=== PATIENT | female | born 1990 | race Hispanic/Latino ===

== ENCOUNTER 2024-02-29 06:55 | Day surgery (SDC) | payer BC, OTHER ==
[2024-02-26 12:46] LABS: Absolute Basophils 0.1 K/uL (0-0.5); Absolute Eosinophils 0.2 K/uL (0-0.5); Absolute Lymphocytes (CBC) 2.1 K/uL (0.7-4.9); Absolute Monocytes 0.4 K/uL (0.1-1.3); Absolute Neutrophil 4.9 K/uL (1.8-8.0); Basophils % 0.9 % (0-1.3); Hematocrit 41.8 % (36.0-45.0); Hemoglobin 14.1 g/dL (12.0-15.0); MCH 29.3 pg (27.0-35.0); MCHC 33.9 g/dL (32.0-36.0); MCV 86.5 fL (80-100); MPV 8.9 fL (7.6-11.3); Monocytes % 5.8 % (3.3-12.3); Neutrophils % 64.3 % (41.7-73.7); Nucleated Red Blood Cells % 0.1 % (0-0); Platelets 354 thou/uL (152-406); RBC Red Blood Cell Count 4.83 M/uL (3.86-4.86); Red Cell Distribution Width 13.6 % (12.1-15.2)
[2024-02-26 13:00] LABS: Specific Gravity 1.018 (1.005-1.030); Sqamous Epithelial 20-50 /HPF (None Seen); Urine Bacteria >50 /HPF (<20); Urine Bilirubin NEGATIVE (Negative); Urine Blood 3+ (Negative); Urine Clarity Extremely Turbid (Clear); Urine Color Light-Orange (Yellow); Urine Culture Reflex Order NOT NEEDED; Urine Glucose NEGATIVE (Negative); Urine Ketones NEGATIVE (Negative); Urine Microscopic Reflex YN ORDER UMIC; Urine Mucus 1+ /HPF (None Seen); Urine Nitrite NEGATIVE (Negative); Urine Protein TRACE (Negative); Urine RBC >50 /HPF (None Seen); Urine Urobilinogen Normal (Normal); Urine WBC >50 /HPF (<5)
--- NOTE | 2024-02-26 16:03 | EKG ---
Test Date: 2024-02-26 Test Time: 12:05:47 Director Of Strategic Communications: JORDAN MEASUREMENT RESULTS: Intervals: Rate: 73 OK: 158 QRSD: 82 QT: 394 QTc: 434 [place]: P: 52 OK: 158 QRS: 1 T: 23 INTERPRETIVE STATEMENTS: Normal sinus rhythm Low voltage QRS Cannot rule out Anterior infarct, age undetermined Abnormal ECG No previous ECG available for comparison Electronically Signed On 02-26-24 16:02:58 CDT by Ed Cantu
[2024-02-28 15:36] LABS: Specific Gravity 1.016 (1.005-1.030)
[2024-02-29] MEDS ORDERED: KETAMINE HCL IN 0.9 % NACL 50 MG/5 ML SYRINGE IV ONE (07:25)
[2024-02-29] MEDS ORDERED: FENTANYL CITR 100 MCG/2 ML ONE (07:25)
[2024-02-29] MEDS ORDERED: propofoL 200 MG/20 ML VIAL IV ONE (07:25)
[2024-02-29] MEDS ORDERED: LIDOCAINE 1% MPF 5 ML VIAL ONE (07:25)
[2024-02-29] MEDS: SCOPOLAMINE HYDROBROMIDE PATCH TD ONE (07:25)
[2024-02-29] MEDS ORDERED: dexAMETHasone 10 MG/ML VIAL ONE (07:25)
[2024-02-29] MEDS ORDERED: ROCURONIUM 50 MG/5 ML VIAL IV ONE (07:25)
[2024-02-29] MEDS ORDERED: ONDANSETRON 4 MG/2 ML VIAL ONE (07:25)
[2024-02-29] MEDS ORDERED: MIDAZOLAM HCL 2 MG/2 ML INJ ONE (07:26)
[2024-02-29] MEDS: Ringers Lactate 1,000 ML IV ONE ×2 (07:48→09:07)
[2024-02-29] MEDS: CEFAZOLIN SODIUM 2 GM/VIAL ONE (08:20)
[2024-02-29] MEDS: BUPIVACAINE 0.25% PF 30 ML VIAL ONE (08:36)
[2024-02-29] MEDS ORDERED: VECURONIUM 10 MG/VIAL IV ONE (09:11)
[2024-02-29] MEDS ORDERED: KETOROLAC 30 MG/ML INJ ONE (09:30)
[2024-02-29] MEDS ORDERED: NEOSTIGMINE 1 MG/ML -10 ML VIAL ONE (09:39)
[2024-02-29] MEDS ORDERED: GLYCOPYRROLATE 0.2 MG/ML SYR ONE (09:39)
[2024-02-29] MEDS ORDERED: MORPHINE 10 MG/ML VIAL ONE (09:43)
[2024-02-29] MEDS ORDERED: PROMETHAZINE INJ 25 MG/ML AMP IV PRN (09:59)
[2024-02-29] MEDS ORDERED: PROMETHAZINE 25 MG TABLET PO PRN (09:59)
[2024-02-29] MEDS ORDERED: IBUPROFEN 200 MG TAB PO PRN (09:59)
[2024-02-29] MEDS ORDERED: EPHEDRINE SULF 50 MG/ML VIAL ONE (09:59)
--- NOTE | 2024-02-29 10:03 | P.BOP ---
Preoperative diagnosis: Menorrhagia and dysmenorrhea Postoperative diagnosis: Same, suspected adenomyosis Primary procedure: Total laparoscopic hysterectomy bilateral salpingectomy Chair Maker: Rasheeda Morris Estimated blood loss: 25 Specimen: Uterus and bilateral tubes Findings: No endometriosis noted, uterus enlarged and appeared to have an adenomyoma Anesthesia: General Complications: None Transferred to: Recovery Room Condition: Good
[2024-02-29] MEDS ORDERED: MEPERIDINE HCL 25 MG/ML SYR ONE (10:38)
[2024-02-29] MEDS: MEPERIDINE HCL 25 MG/ML SYR IM PRN (10:40)
[2024-02-29] MEDS: HYDROCODONE/APAP 7.5/325 MG TAB ONE (11:48)
[2024-02-29 14:03] VITALS: TEMP 97; O2SAT 100
[2024-02-29 14:37] VITALS: BP 100/62
--- NOTE | 2024-02-29 20:57 | OP ---
Date of Procedure: 02/29/2024 Surgeon: Betty Calles MD Practice Manager: Rasheeda Chung. Preoperative Diagnoses: Menorrhagia, dysmenorrhea (AUB-O/A). Postoperative Diagnoses: Menorrhagia, dysmenorrhea (AUB-O/A), and likely adenomyosis. Procedures Performed: Total laparoscopic hysterectomy and bilateral salpingectomy. Anesthesia: General endotracheal. Estimated Blood Loss: 25. Specimens: Uterus, bilateral tubes. Complications: None. Drains: None. Condition: Patient's condition is stable. Findings: Uterus is boggy and enlarged, very suspicious for adenomyosis. No evidence of any endomet riosis on the peritoneum. Ovaries were unremarkable. Indications: The patient is a 33-year-old 2, para 2, who had significant bleeding, was in ER 16 months ago due to heavy bleeding. She had been evaluated with endometrial sampling. No atyp ia or malignancy present. So given an IUD for treatment. This did not work for her, and she continu ed to have bleeding. This was followed by removal of the IUD and administration of depot medroxyprog esterone acetate. After a year on the Depo, she is still not improved. Her bleeding is significantl y worse, and she has large clots despite the Depo, and the patient is completed with childbearing and she is very sure of proceeding with definitive treatment as all the conservative treatment methods h ave failed. She was consented for laparoscopic hysterectomy, bilateral salpingectomy with ovarian preservation. She was re-consented in the preoperative area and taken back to the OR. Procedure In Detail: She was placed in the supine fashion on the operating room table. General anes thesia was given. She was placed in a dorsal lithotomy position using Redd stirrups. Abdomen, vulv a, vagina, and perineum were prepped and draped in a sterile fashion. Jacobs was placed to drain the bladder. Speculum placed to expose the cervix. Anterior lip grasped with 2 Allis clamps, dilated to 16-Chilean. Large cup VCare uterine manipulator introduced into the uterus and fixed in place. Fole y was placed to drain the bladder and attached to gravity drainage bag. This area was then draped. A 1 cm curvilinear, infraumbilical incision was made with a scalpel using the open laparoscopy techni que. Fascia was incised, tagged with 0 Vicryl sutures. Peritoneum entered sharply. Shannon introduc ed. Site of entry was checked and was unremarkable. Then, the pelvic peritoneum, upper abdominal pe ritoneum were all visualized. No evidence of any endometriosis was seen. Mostly, the uterus appeare d to be enlarged and likely adenomyotic. Could have a fibroid but it looked softer, consistent with an adenomyoma. Ten suprapubic and five left lower quadrant ports were placed under direct vision. The bowel was ret racted using the sigmoid epiploica on a 3-0 Monocryl suture, pulled through the left upper quadrant p ort using a Bridger-Sharla needle and retracted here with the hemostat for good visualization of the pelvis. The left tube was taken down with the help of the LigaSure. Utero-ovarian ligament and round ligamen t were taken down. Broad ligament taken down as well. Peritoneum opened anteriorly and posteriorly in front to raise the bladder flap and posteriorly to expose the cup. The vessels were isolated and cauterized and cut with the help of LigaSure. Then, I went on the opposite side and the similar diss ection performed, taking the tube down, utero-ovarian ligament, and round ligament. Then, anteriorly the bladder flap was connected and posteriorly, after rest of the broad ligament was taken down, the vessels were exposed. They were also cauterized and cut. Cardinal ligaments were then exposed afte r starting the colpotomy in the anterior cul-de-sac, and this was brought over to the lateral aspect. Then, once the cardinal ligaments were visualized, bipolar [place] was used to cauterize and then cut with the help of the monopolar. Similarly, on the opposite side, the colpotomy was done posterio rly completed, specimen pulled out through the vagina and handed off for permanent pathology. A vagi nal occluder was placed, and I went laparoscopically. Cuff closure was done with the help of 2 simple 0 PDS sutures and then 3 [id number] in the cent er. There was excellent closure and the resuspension back. Thorough irrigation and suction were performed. The pelvis and both ureters appeared to be untraumat ized and ovaries unremarkable. The patient was taken out of Trendelenburg. Jacobs was removed. Vagi nal occluder was removed. After the trocars were removed under direct vision, the gas was desufflate d, and fascia at the umbilicus was closed with 0 Vicryl in a [id number] fashion using the 2 tagg ed Vicryl sutures tied to each other. Suprapubic simple 0 Vicryl suture on the fascia and interrupted 4-0 Monocryl sutures on the skin. In strument, needle, and sponge counts were done and were correct at the end of the case. The patient t olerated the procedure well. EBL 25. Her mother was debriefed about the procedure. She will follow up in one week. AARON/MICHELLE Voice ID: [id number] Report ID: [id number]
[2024-03-01] MEDS ORDERED: lisinopriL 10 MG TAB PO SCH (09:00)
[2024-03-01] MEDS ORDERED: SPIRONOLACTONE 25 MG TABLET PO SCH (09:00)
[2024-03-01] MEDS ORDERED: NAPROXEN 500 MG PO SCH (09:00)
== END 2024-02-29 13:50 | disposition home or self-care (01) ==
LOC: OR 06:55
PROVIDERS: ADMIT Obstetrics & Gynecology; ATTEND Obstetrics & Gynecology
PROC: 0UT74ZZ Resection of Bilateral Fallopian Tubes, Percutaneous Endoscopic Approach (ICD-10-PCS; 2024-02-29)
PROC: 0UT94ZZ Resection of Uterus, Percutaneous Endoscopic Approach (ICD-10-PCS; principal; 2024-02-29 08:00)
DX: N80.03 Adenomyosis of the uterus (principal); N72 Inflammatory disease of cervix uteri; N92.1 Excessive and frequent menstruation with irregular cycle; N94.6 Dysmenorrhea, unspecified; Z30.9 Encounter for contraceptive management, unspecified
CPT/HCPCS: 58571; 93005; 85025; 81001; 36415; 86900; 86850; 81025; 86901; 88307; J2704; J2710; J2001; J2250; J3010; J1100; J2175; J2405; J7120 ×2; 88304